=== PATIENT | female | born 1965 | race Caucasian/White ===

== ENCOUNTER 2020-10-27 12:28 | Emergency (ER) | payer OTHER ==
[~2020-10-27 12:28] MED LIST: BACTRIM DS TAB1 EACH PO; BACTROBAN OINT22 GM EXT; KEFLEX CAP 500500 MG PO
[2020-10-27 14:25] LABS: HEMOGLOBIN 13.6 gm/dl (12.3-15.3); RED BLOOD COUNT 4.79 M/UL (4.00-5.10); WHITE BLOOD COUNT 6.4 K/UL (4.5-11.0)
[2020-10-27 14:46] LABS: BUN/CREATININE RATIO 16 (0-10)
[2020-10-27] MEDS ORDERED: PROAIR HFA8.5 GM INH (16:15)
== END 2020-10-27 16:30 | disposition home or self-care (01) ==
LOC: ER1 12:28
PROVIDERS: Physician Assistant
DX: U07.1 COVID-19 (principal); E87.1 Hypo-osmolality and hyponatremia; J45.909 Unspecified asthma, uncomplicated; E11.9 Type 2 diabetes mellitus without complications; Z88.5 Allergy status to narcotic agent; Z86.73 Personal history of transient ischemic attack (TIA), and cerebral infarction without residual deficits
CPT/HCPCS: 36600; 71045; 80053; 82550; 82553; 82803; 82962; 83605; 83874; 84484; 85025; 93005; 99284; J7030

== ENCOUNTER 2020-11-23 17:36 | Emergency (ER) | payer MEDICARE, OTHER ==
[~2020-11-23 17:36] MED LIST changes: +PROAIR HFA8.5 GM INH
== END 2020-11-23 18:00 | disposition left against medical advice (07) ==
LOC: ER1 17:36
DX: R11.0 Nausea (principal); R42 Dizziness and giddiness; Z53.21 Procedure and treatment not carried out due to patient leaving prior to being seen by health care provider

== ENCOUNTER 2021-10-15 11:08 | Observation (INO) | payer MEDICARE, OTHER ==
[~2021-10-15] VITALS: Ht 157.5 cm; Wt 104.3 kg
[2021-10-15 12:01] LABS: HEMOGLOBIN 12.8 gm/dl (12.3-15.3); RED BLOOD COUNT 4.41 M/UL (4.00-5.10); WHITE BLOOD COUNT 8.4 K/UL (4.5-11.0)
[2021-10-15 12:28] LABS: BUN/CREATININE RATIO 14 (0-10)
[2021-10-15] MEDS ORDERED: ATORVASTATIN CA20 MG PO (15:29)
[2021-10-15] MEDS ORDERED: CETIRIZINE HCL10 MG PO (15:30)
[2021-10-15] MEDS ORDERED: CYCLOBENZAPRINE10 MG PO (15:30)
[2021-10-15] MEDS ORDERED: GABAPENTIN300 MG PO (15:31)
[2021-10-15] MEDS ORDERED: FLUOXETINE HCL40 MG PO (15:31)
[2021-10-15] MEDS ORDERED: HYDROCODON-ACE1 EAC2 PO (15:32)
[2021-10-15] MEDS ORDERED: JANUVIA100 MG PO (15:33)
[2021-10-15] MEDS ORDERED: LEVOTHYROXINE25 MCG PO (15:34)
[2021-10-15] MEDS ORDERED: LOPRESSOR 25 MG25 MG PO (15:34)
[2021-10-15] MEDS ORDERED: ELAVIL 50 MG TA50 MG PO (15:36)
[2021-10-15] MEDS ORDERED: ONDANSETRON HCL4 MG PO (15:36)
[2021-10-15] MEDS ORDERED: MOVANTIK25 MG PO (15:37)
[2021-10-15] MEDS ORDERED: PROTONIX 40 MG40 M1 PO (15:37)
[2021-10-15] MEDS ORDERED: TOPIRAMATE50 MG PO (15:38)
[2021-10-15] MEDS ORDERED: TOPAMAX50 MG PO (15:40)
[2021-10-15] MEDS ORDERED: PROAIR DIGIHAL90 MCG INH (16:08)
[2021-10-15] MEDS ORDERED: VOLTAREN ARTHRI20 GM TOP (16:10)
[2021-10-15] MEDS ORDERED: IBU600 MG PO (16:11)
[2021-10-15] MEDS ORDERED: NITROSTAT0.4 MG SL (16:15)
[2021-10-16 07:09] LABS: HEMOGLOBIN 12.9 gm/dl (12.3-15.3); RED BLOOD COUNT 4.53 M/UL (4.00-5.10); WHITE BLOOD COUNT 7.8 K/UL (4.5-11.0)
[2021-10-16 07:45] LABS: BUN/CREATININE RATIO 16 (0-10)
[2021-10-16] MEDS ORDERED: RANEXA500 MG PO (11:14)
[2021-10-16] MEDS ORDERED: ASPIRIN EC81 MG PO (11:14)
== END 2021-10-16 13:45 | disposition home or self-care (01) ==
LOC: ER1 11:08 → M/S 14:25 → CDU 14:25 → M/S 15:59
PROVIDERS: Physician Assistant; ADMIT Internal Medicine
DX: I20.8 Other forms of angina pectoris (principal); E11.9 Type 2 diabetes mellitus without complications; E78.5 Hyperlipidemia, unspecified; E03.9 Hypothyroidism, unspecified; E66.01 Morbid (severe) obesity due to excess calories; R11.2 Nausea with vomiting, unspecified; R06.02 Shortness of breath; R94.39 Abnormal result of other cardiovascular function study; I25.2 Old myocardial infarction; Z79.82 Long term (current) use of aspirin; Z86.73 Personal history of transient ischemic attack (TIA), and cerebral infarction without residual deficits; Z96.653 Presence of artificial knee joint, bilateral; Z90.49 Acquired absence of other specified parts of digestive tract; Z90.710 Acquired absence of both cervix and uterus; Z88.5 Allergy status to narcotic agent; Z82.49 Family history of ischemic heart disease and other diseases of the circulatory system; Z20.822 Contact with and (suspected) exposure to COVID-19
CPT/HCPCS: 36415; 71045; 80048; 80053; 80076; 82550; 82553; 82962; 83036; 83874; 83880; 84484; 85025; 93005; 99285; G0378; U0002